=== PATIENT | male | born 1995 | race Caucasian/White ===

== ENCOUNTER 2017-01-23 02:48 | Emergency (ER) | payer BC ==
[~2017-01-23] VITALS: Ht 177.8 cm; Wt 63.6 kg
[2017-01-23 02:51] VITALS: BP 133/97; TEMP 97
[2017-01-23 03:40] VITALS: PULSE 100
== END 2017-01-23 03:41 | disposition home or self-care (01) ==
LOC: COL.ER 02:48
DX: S61.012A Laceration without foreign body of left thumb without damage to nail, initial encounter (principal); W26.0XXA Contact with knife, initial encounter

== ENCOUNTER 2017-02-05 13:40 | Emergency (ER) | payer OTHER ==
[2017-02-05 14:01] VITALS: BP 129/70; PULSE 99; TEMP 98.4
== END 2017-02-05 14:08 | disposition home or self-care (01) ==
LOC: COL.ER 13:40
DX: S61.012D Laceration without foreign body of left thumb without damage to nail, subsequent encounter (principal)

== ENCOUNTER 2017-07-10 21:15 | Emergency (ER) | payer OTHER ==
[~2017-07-10] VITALS: Ht 177.8 cm; Wt 63.6 kg
[2017-07-10 21:19] VITALS: BP 137/75; TEMP 99.3
[2017-07-10 22:36] VITALS: PULSE 79
== END 2017-07-10 22:37 | disposition home or self-care (01) ==
LOC: COL.ER 21:15
DX: S01.01XA Laceration without foreign body of scalp, initial encounter (principal); W22.8XXA Striking against or struck by other objects, initial encounter; Y93.67 Activity, basketball; Y92.34 Swimming pool (public) as the place of occurrence of the external cause

== ENCOUNTER 2017-07-17 13:54 | Emergency (ER) | payer OTHER ==
[2017-07-17 14:07] VITALS: BP 125/85; PULSE 104; TEMP 98.8
== END 2017-07-17 14:12 | disposition home or self-care (01) ==
LOC: COL.ER 13:54
DX: S01.91XD Laceration without foreign body of unspecified part of head, subsequent encounter (principal); X58.XXXD Exposure to other specified factors, subsequent encounter